=== PATIENT | female | born 1965 | race Asian ===

== ENCOUNTER 2016-09-25 21:39 | Emergency (ER) | payer BC, MEDICAID ==
[~2016-09-25] VITALS: Ht 152.4 cm; Wt 44.5 kg
--- NOTE | 2016-09-25 21:39 | NUR ---
Patient to ER bed 1 to gown for evaluation. Side rails up. Report given to Sol CAMPBELL.
--- NOTE | 2016-09-25 21:40 | NUR ---
Patient is in stable condition in [facility]. States that she was in a [employer] parking lot doing karate kicks with son when she fell back and hit her head an a metal door. Laceration to left lateral head. Denies any LOC, Dizziness, Nausea, vomitting, or blurry vision. No other complaints/injuries per patient or as noted.
[2016-09-25 21:43] VITALS: BP 173/99; PULSE 85; RESP 17; TEMP 98.2; O2SAT 99
--- NOTE | 2016-09-25 21:57 | NUR ---
Dr. Dickerson at bedside
[2016-09-25] MEDS ORDERED: BACITRACIN 1 GM OINT TP ONE (22:21)
[2016-09-25] MEDS ORDERED: HYDROcodone/ACETAMIN 10-325 MG TAB PO ONE (22:30)
[2016-09-25] MEDS ORDERED: ONDANSETRON 4 MG ODT TAB PO ONE (22:45)
[2016-09-25 23:07] VITALS: BP 138/76; PULSE 86; RESP 18; TEMP 98.2; O2SAT 98
--- NOTE | 2016-09-25 23:07 | NUR ---
Patient given written and verbal discharge instructions and verbalizes understanding. ER MD discussed with patient the results and treatment provided. Patient in stable condition. ID arm band removed. Rx of Tylenol #3 and zofran given. Patient educated on pain management and to follow up with PMD in 2 days and follow up in 10 days for staple removal. Pain Scale 2/10 Opportunity for questions provided and answered.
== END 2016-09-25 23:07 | disposition home or self-care (01) ==
LOC: SED 21:39
DX: S01.01XA Laceration without foreign body of scalp, initial encounter (principal); Z88.6 Allergy status to analgesic agent; Z88.8 Allergy status to other drugs, medicaments and biological substances; W18.39XA Other fall on same level, initial encounter; Y93.75 Activity, martial arts; Y99.8 Other external cause status; Y92.481 Parking lot as the place of occurrence of the external cause
CPT/HCPCS: 12001; 99283; Q0162